=== PATIENT | male | born 1975 | race American Indian/Alaskan Native ===

== ENCOUNTER 2016-09-10 13:28 | Emergency (ER) | payer MEDICARE ==
[2016-09-10 13:40] VITALS: BP 135/78; PULSE 72; RESP 18; TEMP 98.6; O2SAT 98; BMI 32.5
--- NOTE | 2016-09-10 14:03 | ED PDOC ---
Arrival/HPI - General Chief Complaint: Abnormal Skin Integrity Time Seen by Provider: 09/10/16 13:46 Historian: Patient - History of Present Illness Narrative History of Present Illness (Text): 09/10/16 13:59 This 41 yo male presents to this ED c/o bed bugs rash x 1 week. Patient stated he feels insect bites at night. He notices a pruritic rash. Denies sob, cp, cellulitis, or fever. Denies other complains. Time/Duration: 1 week Context: Home Past Medical History - Provider Review Nursing Documentation Reviewed: Yes - Infectious Disease Hx of Infectious Diseases: None - Tetanus Immunization Tetanus Immunization: Unknown - Psychiatric Hx Depression: No Hx Emotional Abuse: No Hx Physical Abuse: No Hx Substance Use: No - Suicidal Assessment Feels Threatened In Home Enviroment: No Family/Social History - Physician Review Nursing Documentation Reviewed: Yes Family/Social History: No Known Family HX Smoking Status: Never Smoked Hx Alcohol Use: No Hx Substance Use: No Hx Substance Use Treatment: No Allergies/Home Meds Allergies/Adverse Reactions: Allergies No Known Allergies Allergy (Verified 09/10/16 13:40) Review of Systems - Review of Systems Constitutional: Normal. absent: Fatigue, Weight Change, Fevers, Night Sweats Eyes: Normal. absent: Vision Changes ENT: Normal Respiratory: Normal. absent: SOB, Cough, Sputum Cardiovascular: Normal. absent: Chest Pain Gastrointestinal: Normal. absent: Abdominal Pain, Nausea, Vomiting Genitourinary Male: Normal. absent: Dysuria, Frequency Musculoskeletal: Normal. absent: Back Pain Skin: Rash, Pruritis, Other (insect bites). absent: Skin Lesions, Laceration, Abscess, Ulcer, Cellulitis Neurological: Normal Endocrine: Normal Hemo/Lymphatic: Normal Psychiatric: Normal Physical Exam Vital Signs Temp Pulse Resp BP Pulse Ox 09/10/16 13:35 98.6 F 72 18 135/78 98 Temperature: Afebrile Blood Pressure: Normal Pulse: Regular Respiratory Rate: Normal Appearance: Positive for: Well-Appearing, Non-Toxic, Comfortable Pain Distress: None Mental Status: Positive for: Alert and Oriented X 3 - Systems Exam Head: Present: Atraumatic, Normocephalic Pupils: Present: PERRL Extroacular Muscles: Present: EOMI Conjunctiva: Present: Normal Mouth: Present: Moist Mucous Membranes Neck: Present: Normal Range of Motion Respiratory/Chest: Present: Clear to Auscultation, Good Air Exchange. No: Respiratory Distress, Accessory Muscle Use Cardiovascular: Present: Regular Rate and Rhythm, Normal S1, S2. No: Murmurs Back: Present: Normal Inspection Upper Extremity: Present: Normal Inspection, Normal ROM, NORMAL PULSES, Neurovascularly Intact, Capillary Refill < 2s. No: Cyanosis, Edema Lower Extremity: Present: Normal Inspection, NORMAL PULSES, Normal ROM, Neurovascularly Intact, Capillary Refill < 2 s. No: Edema, CALF TENDERNESS Neurological: Present: GCS=15, CN II-XII Intact, Speech Normal, Motor Func Grossly Intact, Normal Sensory Function, Normal Cerebellar Funct, Gait Normal, Memory Normal Skin: Present: Warm, Dry, Rashes (scattered healed rash wound on thruck and extremities. No insects were visualized. No cellulitis or abscess), Normal Color Psychiatric: Present: Alert, Oriented x 3, Normal Insight, Normal Concentration Medical Decision Making ED Course and Treatment: 09/10/16 14:06 Re-evaluation. Patient feels better. Discussed results and plan with patient who expresses understanding. All questions answered and there is agreement with the plan to discharge home with instructions. Patient stable for discharge. Return if symptoms persist or worsen. Re-evaluation Time: 14:06 Reassessment Condition: Re-examined, Unchanged Disposition/Present on Arrival - Present on Arrival Any Indicators Present on Arrival: No History of DVT/PE: No History of Uncontrolled Diabetes: No Urinary Catheter: No History of Decub. Ulcer: No History Surgical Site Infection Following: None - Disposition Have Diagnosis and Disposition been Completed?: Yes Diagnosis: Rash and nonspecific skin eruption Disposition: HOME/ ROUTINE Disposition Time: 14:06 Patient Plan: Discharge Patient Problems: Current Active Problems Problem Status Onset Rash and nonspecific skin eruption Acute Condition: GOOD Discharge Instructions (ExitCare): Insect Bite or Sting (ED), Bed Bugs (ED) Additional Instructions: Call private doctor for revaluation in 2-3 days. Take medication as instructed. Make sure bed needs to be thrown out. Have land lord fumigates apartment. Keep apartment clean, and iron all clothes. Return to emergency if skin infection develop or worsen symptoms. Prescriptions: Hydroxyzine Pamoate [Vistaril] 25 mg PO Q6H PRN #30 capsule PRN Reason: Itching / Pruritus Referrals: [facility] Profile Req, [Primary Care Provider] - Follow up with primary Taylor Wolfe MD [Staff Provider] - Follow up with primary Forms: WORK NOTE
== END 2016-09-10 14:57 | disposition home or self-care (01) ==
LOC: ED 13:28
DX: R21 Rash and other nonspecific skin eruption (principal)

== ENCOUNTER 2017-02-24 17:43 | Emergency (ER) | payer MEDICARE ==
[2017-02-24 17:43] VITALS: BMI 32.5
--- NOTE | 2017-02-24 18:10 | ED PDOC ---
Arrival/HPI - General Chief Complaint: Upper Extremity Problem/Injury Time Seen by Provider: 02/24/17 18:06 Historian: Patient - History of Present Illness Narrative History of Present Illness (Text): 02/24/17 18:10 This 41 yo male who denies pmh, presents to this ED c/o left posterior shoulder pain x 3 days. Patient stated he works for [employer], and he has been lifting boxes very often, and he feels he pulled a muscle. He is requesting an X-rays. Patient denies trauma, or other somatic complains. Time/Duration: Other (3 days) Quality: Aching Context: Work Past Medical History - Provider Review Nursing Documentation Reviewed: Yes - Infectious Disease Hx of Infectious Diseases: None - Tetanus Immunization Tetanus Immunization: Unknown - Psychiatric Hx Depression: No Hx Emotional Abuse: No Hx Physical Abuse: No Hx Substance Use: No - Anesthesia Hx Anesthesia: No - Suicidal Assessment Feels Threatened In Home Enviroment: No Family/Social History - Physician Review Nursing Documentation Reviewed: Yes Family/Social History: Other (noncontributory) Smoking Status: Never Smoked Hx Alcohol Use: No Hx Substance Use: No Hx Substance Use Treatment: No Allergies/Home Meds Allergies/Adverse Reactions: Allergies No Known Allergies Allergy (Verified 02/24/17 18:01) Review of Systems - Review of Systems Constitutional: Normal. absent: Fatigue, Weight Change, Fevers Eyes: Normal ENT: Normal Respiratory: Normal. absent: SOB, Cough Cardiovascular: Normal. absent: Chest Pain, Palpitations Gastrointestinal: Normal. absent: Abdominal Pain, Nausea, Vomiting Genitourinary Male: Normal Musculoskeletal: Other (see hpi) Skin: Normal Neurological: Normal. absent: Headache, Dizziness, Focal Weakness Endocrine: Normal Hemo/Lymphatic: Normal Psychiatric: Normal Physical Exam Vital Signs Temp Pulse Resp BP Pulse Ox 02/24/17 18:22 98.6 F 65 22 134/86 100 02/24/17 18:01 98.1 F 58 L 16 124/84 98 Temperature: Afebrile Blood Pressure: Normal Pulse: Regular Respiratory Rate: Normal Appearance: Positive for: Well-Appearing, Non-Toxic, Comfortable Pain Distress: None Mental Status: Positive for: Alert and Oriented X 3 - Systems Exam Head: Present: Atraumatic, Normocephalic Pupils: Present: PERRL Extroacular Muscles: Present: EOMI Conjunctiva: Present: Normal Mouth: Present: Moist Mucous Membranes Neck: Present: Normal Range of Motion Respiratory/Chest: Present: Clear to Auscultation, Good Air Exchange. No: Respiratory Distress, Accessory Muscle Use Cardiovascular: Present: Regular Rate and Rhythm, Normal S1, S2. No: Murmurs Abdomen: Present: Normal Bowel Sounds. No: Tenderness, Distention, Peritoneal Signs Back: Present: Normal Inspection Upper Extremity: Present: Normal Inspection, Normal ROM, NORMAL PULSES, Tenderness (Mild tenderness over medial side of left scapula on palpation. No swelling, erythema, ecchymosis, or abscess.), Neurovascularly Intact, Capillary Refill < 2s. No: Cyanosis, Edema Lower Extremity: Present: Normal Inspection. No: Edema Neurological: Present: GCS=15, CN II-XII Intact, Speech Normal Skin: Present: Warm, Dry, Normal Color. No: Rashes Psychiatric: Present: Alert, Oriented x 3, Normal Insight, Normal Concentration Medical Decision Making ED Course and Treatment: 02/24/17 19:13 Re-evaluation. Patient feels better. Discussed results and plan with patient who expresses understanding. All questions answered and there is agreement with the plan to discharge home with instructions. Patient stable for discharge. Return if symptoms persist or worsen. Re-evaluation Time: 19:13 Reassessment Condition: Re-examined, Improved - RAD Interpretation Narrative RAD Interpretations (Text): 02/24/17 19:12 Shoulder x-rays: No fracture Radiology Orders: 02/24/17 18:14 SHOULDER LEFT [RAD] Stat - Medication Orders Current Medication Orders: Discontinued Medications Naproxen (Anaprox Ds) 550 mg PO STAT STA Stop: 02/24/17 18:16 Last Admin: 02/24/17 18:48 Dose: 550 mg Disposition/Present on Arrival - Present on Arrival Any Indicators Present on Arrival: No History of DVT/PE: No History of Uncontrolled Diabetes: No Urinary Catheter: No History of Decub. Ulcer: No History Surgical Site Infection Following: None - Disposition Have Diagnosis and Disposition been Completed?: Yes Diagnosis: Muscle strain of left scapular region Disposition: HOME/ ROUTINE Disposition Time: 19:13 Patient Plan: Discharge Patient Problems: Current Active Problems Problem Status Onset Muscle strain of left scapular region Acute Condition: GOOD Discharge Instructions (ExitCare): Shoulder Pain (ED) Additional Instructions: Call private doctor for follow up visit in 1-2 days. Call workers comp if yours symptoms persist or worsen. return to emergency if pain worsen. Take medication as instructed with food. Call Orthopedist if pain worsen. Prescriptions: Famotidine [Pepcid] 40 mg PO DAILY #10 tablet Naproxen 500 mg PO BID PRN #14 tab PRN Reason: Pain, Severe (8-10) Referrals: Jenae Arzate, [Primary Care Provider] - Follow up with primary Cr Chandler DO [Staff Provider] - Follow up with primary Forms: [employer] (Lux[place]bourgish)
[2017-02-24] MEDS ORDERED: Naproxen 550 mg Tab PO STA (18:15)
[2017-02-24 18:30] VITALS: BP 134/86; PULSE 65; RESP 22; TEMP 98.6; O2SAT 100
--- NOTE | 2017-02-25 10:40 | RAD ---
PROCEDURE: Radiographs of the Left Shoulder HISTORY: Pain. COMPARISON: No prior study available for comparison. FINDINGS: BONES: No definitive radiographic evidence of acute displaced fracture. No dislocation. JOINTS: Normal. Glenohumeral and acromioclavicular joints preserved. No osteoarthritis. SOFT TISSUES: Normal. OTHER FINDINGS: None. IMPRESSION: No definitive radiographic evidence of acute displaced fracture. No dislocation. If symptoms persist or occult fracture suspected clinically consider followup MRI.
== END 2017-02-24 19:23 | disposition home or self-care (01) ==
LOC: ED 17:43
DX: S46.912A Strain of unspecified muscle, fascia and tendon at shoulder and upper arm level, left arm, initial encounter (principal); X50.9XXA Other and unspecified overexertion or strenuous movements or postures, initial encounter; Y92.89 Other specified places as the place of occurrence of the external cause; Y99.8 Other external cause status

== ENCOUNTER 2018-07-28 15:58 | Emergency (ER) | payer MEDICARE ==
[2018-07-28 15:58] VITALS: BMI 32.5
[2018-07-28 16:22] VITALS: RESP 18; TEMP 98.8
--- NOTE | 2018-07-28 17:03 | ED PDOC ---
Arrival/HPI - General Chief Complaint: ENT Problem Time Seen by Provider: 07/28/18 15:59 Historian: Patient - History of Present Illness Narrative History of Present Illness (Text): 43 y/o male with no significant PMH presents to the ED c/o nasal congestion x 2 days. States this occurs most often when the weather changes. No associated symptoms. Of note, pt was seen at [facility] on 07/04 for allergic conjunctivitis. Denies fever, chills, cough, chest pain, SOB, ear pain, vision changes, sore throat, dizziness, headache, neck pain/stiffness, abdominal pain, nausea, vomiting, or any other associated symptoms. Past Medical History - Provider Review Nursing Documentation Reviewed: Yes - Infectious Disease Hx of Infectious Diseases: None - Tetanus Immunization Tetanus Immunization: Unknown - Psychiatric Hx Depression: No Hx Emotional Abuse: No Hx Physical Abuse: No Hx Substance Use: No - Anesthesia Hx Anesthesia: No - Suicidal Assessment Feels Threatened In Home Enviroment: No Family/Social History - Physician Review Nursing Documentation Reviewed: Yes Family/Social History: No Known Family HX Smoking Status: Never Smoked Hx Alcohol Use: No Hx Substance Use: No Hx Substance Use Treatment: No Allergies/Home Meds Allergies/Adverse Reactions: Allergies No Known Allergies Allergy (Verified 07/28/18 16:21) Review of Systems - Review of Systems Constitutional: Normal. absent: Fevers Eyes: Normal. absent: Vision Changes ENT: Sinus Congestion. absent: Sore Throat, Other (no ear pain) Respiratory: Normal. absent: SOB, Cough Cardiovascular: Normal. absent: Chest Pain, Palpitations Gastrointestinal: Normal. absent: Abdominal Pain, Nausea, Vomiting Genitourinary Male: Normal. absent: Dysuria, Frequency Musculoskeletal: Normal. absent: Back Pain, Neck Pain Skin: Normal. absent: Rash Neurological: Normal. absent: Headache, Dizziness Physical Exam Vital Signs Reviewed: Yes Vital Signs Temp Pulse Resp BP Pulse Ox 07/28/18 15:58 98.8 F 77 18 138/84 96 Temperature: Afebrile Blood Pressure: Normal Pulse: Regular Respiratory Rate: Normal Appearance: Positive for: Well-Appearing, Non-Toxic, Comfortable Pain Distress: None Mental Status: Positive for: Alert and Oriented X 3 - Systems Exam Head: Present: Atraumatic, Normocephalic Pupils: Present: PERRL Extroacular Muscles: Present: EOMI Conjunctiva: Present: Normal Ears: Present: Normal, NORMAL TM, Normal Canal Mouth: Present: Moist Mucous Membranes Pharnyx: Present: Normal. No: ERYTHEMA, EXUDATE, TONSILS ENLARGED, Peritonsilar Swelling, Uvular Deviation, Muffled/Hoarse Voice, Strider Nose (External): Present: Atraumatic Nose (Internal): Present: Moist, Boggy. No: Epistaxis Neck: Present: Normal Range of Motion. No: Meningeal Signs Respiratory/Chest: Present: Clear to Auscultation, Good Air Exchange. No: Respiratory Distress, Accessory Muscle Use, Wheezes Cardiovascular: Present: Regular Rate and Rhythm, Normal S1, S2, Peripheal Pulses Present Upper Extremity: Present: Normal Inspection, Normal ROM. No: Cyanosis, Edema Lower Extremity: Present: Normal Inspection, Normal ROM Neurological: Present: GCS=15, Speech Normal, Gait Normal Skin: Present: Warm, Dry, Normal Color. No: Rashes Lymphatic: No: Cervical Adenopathy Psychiatric: Present: Alert, Oriented x 3, Normal Insight, Normal Concentration, Normal Affect, Normal Mood Medical Decision Making ED Course and Treatment: Symptoms consistent with seasonal allergies. Pt given prescriptions for zyrtec and flonase. Advised PMD followup. Diagnostic testing results and plan of care discussed with patient. Strict instructions given regarding prescription use, importance of followup, and signs/symptoms to return to ER including or any other new/worsening symptoms. Pt verbalized understanding of discussion. Patient is A&Ox3, ambluating with steady gait, with vital signs stable for discharge. Disposition/Present on Arrival - Present on Arrival Any Indicators Present on Arrival: No History of DVT/PE: No History of Uncontrolled Diabetes: No Urinary Catheter: No History of Decub. Ulcer: No History Surgical Site Infection Following: None - Disposition Have Diagnosis and Disposition been Completed?: Yes Diagnosis: Nasal congestion, Seasonal allergies Disposition: HOME/ ROUTINE Disposition Time: 16:15 Patient Plan: Discharge Condition: GOOD Discharge Instructions (ExitCare): Seasonal Allergies in Adults Additional Instructions: Zyrtec daily Flonase 2 sprays per nostril in the morning daily Increase fluids Humidifier at night Followup with primary doctor within 2 days Return to ER with any new/worsening symptoms Prescriptions: Cetirizine HCl [Zyrtec] 10 mg PO DAILY #30 capsule Fluticasone Propionate [Flonase] 2 spr NS DAILY #1 bottle Referrals: Maury Jaime MD [Primary Care Provider] - Follow up with primary Forms: [employer] (Senegalese), WORK NOTE
[2018-07-28 17:45] VITALS: BP 130/71; PULSE 80; O2SAT 97
== END 2018-07-28 17:30 | disposition home or self-care (01) ==
LOC: ED 15:58
DX: J30.2 Other seasonal allergic rhinitis (principal); R09.81 Nasal congestion